=== PATIENT | female | born 1945 | race Caucasian/White ===

== ENCOUNTER 2024-07-05 12:26 | Emergency (ER) | payer MEDICARE, OTHER, SELFPAY ==
[2024-07-05 12:35] VITALS: BP 165/92
[2024-07-05 12:36] VITALS: BP 165/92
--- NOTE | 2024-07-05 12:37 | ED.GENMED ---
History of Present Illness
General
Chief Complaint: Seizure
Source: patient and ambulance crew
Exam Limitations: altered mental status
Time Seen by Provider: 07/05/24 12:34
History of Present Illness
History of Present Illness:
See MDM
Past History
Past History
ED Past Medical History: Cancer (Breast), NIDDM (Not currently on any medications) and Other (Arthritis)
ED Past Surgical History: Gynecological and Orthopedic
Social History
Tobacco: Non-smoker
Phy Exam
Physical Exam
Physical Exam:
See MDM
Course
Orders/Labs/Results
Orders:
Orders
07/05/24 12:33
Electrocardiogram (*1) Urgent
Reason for Study: Syncope
EKG- Treatment ONCE
07/05/24 12:36
CT Cervical Spine W/o Iv Contr Urgent
Comment:
Reason For Exam: unwitnessed fall, neck pain
CT Head W/o Iv Contrast Urgent
Comment:
Reason For Exam: headache, possible seizure
07/05/24 12:49
Complete Blood Count/With Diff Urgent
Comprehensive Metabolic Panel Urgent
Abnormal Lab Results
07/05/24
12:49
RBC 3.90 L 10^6/uL
(4.20-5.40)
Hct 36.7 L %
(37.0-47.0)
MCH 32.6 H pg
(27.0-31.0)
Absolute Lymphs (auto) 0.9 L 10^3/uL
(1.2-3.4)
Lymphocytes % 15.6 L %
(20.5-51.1)
BUN 18 H mg/dl
(7-17)
Glucose 109 H mg/dl
(70-99)
07/05/24 12:49
12/18/24 12:49
Vital Signs
Initial and Last Documented VS:
Initial Vital Signs
Pulse Resp Pulse Ox
79 19 79
07/05/24 12:34 07/05/24 12:34 07/05/24 12:34
Last Documented Vital Signs
Temp Pulse Resp BP Pulse Ox
98.6 F 72 16 165/92 100
07/05/24 12:36 07/05/24 12:45 07/05/24 13:00 07/05/24 12:36 07/05/24 13:08
MDM/Problems Addressed
Differential Diagnosis Includes:
HPI and MDM Narrative:
79-year-old female presenting by EMS for an unwitnessed fall at work. Not much is known. Patient is confused and altered. EMS states there was a concern for seizure but states no one witnessed full body twitching. Patient does have a tongue
bite. She was placed in cervical collar. Patient has repetitive questioning. There is no focal deficits but she does appear confused. Will obtain CT head and neck and will obtain basic blood work
Physical exam
General: Well appearing and non-toxic
HEENT: protecting airway. Tongue bite noted bilaterally to the anterior portion of the tongue. Small bruise to left chin
Neck: appears supple. Cervical collar in place
CV: No evidence of cyanosis. Regular rate and rhythm
Resp: No accessory muscle use
Abd: Non-distended
Extremities: No deformities
Neuro: alert
Psych: Normal affect
Skin: Intact
Problems Addressed including Acute and Chronic Conditions affecting care:
1. Possible new onset seizure versus syncope
Acuity: acute
Prognosis: stable
Details: Will obtain CT head and obtain basic blood
Updates
CT head and neck negative. Blood work without clinical significance. Patient back to baseline and offers no complaint. I had a long discussion with patient and family who was at bedside the entire time. I indicated that since I did not see the
episode, I cannot reliably blame this on a new onset seizure. I did discuss my concern for the tongue bite and the mild confusion and repetitive questioning when she arrived. Neuro was curbsided who suggested not to start antiepileptic drugs.
However, this could be related to the head trauma. It is possible that her tongue bite was related to the fall from syncope. She does have a bruise to her left chin and the tongue bite is more anterior rather than lateral. Because of this, we
discussed talking to her PCP about Holter monitor in about her episode. Everyone at bedside including the patient acknowledged my concern for her driving. She indicates that she will not drive until cleared by either neurologist or her primary
care physician.
Differential Diagnosis (but not limited to): Intracranial mass, intracranial hemorrhage, new onset seizures, hyponatremia, syncope
Testing considered: UDS
Drug therapy (if applicable): OTC meds, please see d/c instruction regarding Rx drugs
Amount and/or Complexity of Data Reviewed
Clinical info obtained from: Patient
External data reviewed: N/A
Labs I independently reviewed (but not limited to): Electrolytes within normal limits
Radiology: The CT scan was personally and independently reviewed. In addition, official CT report reviewed.
Pulse Ox: not hypoxic
EKG independently reviewed: Sinus rhythm, normal axis, no STEMI
Nipple Maker: Sinus rhythm
Critical Care: N/A
Risk of Complication:
Social Determinants of health: Good social support
Discussed with other providers: N/A
Escalation of Care includes Admit/Obs: After being observed in the Emergency Department, pt stable for discharge.
Occasional wrong word or 'sound a like' substitutions may have occurred due to the inherent limitations of voice recognition software. Read the chart carefully and recognize, using context, where substitutions have occurred.
*Critical Care Note
Total Time (30-74mins, 75-104mins- exclusive of procedures): Not Applicable
ED Attending Note
-
Portions of this chart may have been created with voice recognition software.� Occasional wrong word or��sound alike� substitutions may have occurred due to the inherent limitations of voice recognition software.
Discharge Plan
Departure
Patient Disposition: Home (Routine Discharge)
Date of Disposition: 07/05/24
Time of Disposition: 14:51
Patient with high blood pressure during this ER visit?: Yes
Discharge Problem:
Seizure-like activity
Instructions: Syncope (Fainting) (DC), BLOOD PRESSURE
Prescriptions:
No Action
meclizine 25 MG tablet
25 mg PO Q8HPRN PRN (Reason: dizziness) Qty: 15 0RF
Referrals:
Leticia Bennett DO [Family Provider] -
Arben Diego MD [Active] -
Activity Restrictions/Additional Instructions:
As we discussed, it is not certain whether or not you had a seizure. It is possible that you passed out and hit your chin causing the tongue bite. Because I cannot be certain, do not drive a car until cleared by your primary care doctor or a
neurologist. The neurologist is aware you were here today and agreed that we do not need to start seizure medicines. If this was a passing out episode rather than a seizure, please talk to your doctor about obtaining an outpatient heart monitor
called a Holter monitor.
Please return for any worsening symptoms.
You may return at any time if you have further concerns.
Please follow up with your doctor at the first available appointment, preferably this week.
Thank you for choosing [facility].
Interventions
Interventions:
*Risk Screen - Suicide Last Done: 07/05/24 13:08
*General Assessment Last Done: 07/05/24 13:08
*Neglect/Abuse Screening Last Done: 07/05/24 13:08
ED- Fall Risk Assessment Last Done: 07/05/24 13:08
*ED COVID-19 Vaccine History Last Done: 07/05/24 13:08
ED- Cardiac Assessment Last Done: 07/05/24 13:08
ED- Neurological Assessment Last Done: 07/05/24 13:08
ED- Pulmonary Assessment Last Done: 07/05/24 13:08
Discharge Date and Time
Print Language: MOHAWK
[2024-07-05 12:40] VITALS: BMI 31.7
[2024-07-05 12:55] LABS: Glucose - Point of Care 92 mg/dl (70-99)
[2024-07-05 12:59] LABS: % Basophils 0.4 % (0-2); % Eosinophils 1.8 % (0-6); % Immature Granulocytes 0.4 % (0-0.5); % Lymphocytes 15.6 % (20.5-51.1); % Monocytes 9.2 % (1.7-9.3); % Neutrophils 72.6 % (42.2-75.2); Absolute Eosinophils 0.1 10^3/uL (0-0.7); Absolute Lymphocytes 0.9 10^3/uL (1.2-3.4); Absolute Monocytes 0.5 10^3/uL (0.1-0.6); Hematocrit 36.7 % (37.0-47.0); Hemoglobin 12.7 g/dL (12.0-16.0); Mean Corp Hgb Conc. 34.6 g/dL (33.0-37.0); Mean Corpuscular Hgb 32.6 pg (27.0-31.0); Mean Corpuscular Volume 94.1 fL (81.0-99.0); Mean Platelet Volume 9.7 fL (7.4-10.4); Nucleated Red Blood Cells % 0 %; Platelet Count 190 10^3/uL (130-400); White Blood Cell Count 5.6 10^3/uL (4.8-10.8)
--- NOTE | 2024-07-05 13:11 | EDRN ---
Pts pulse ox was not 79% at 1234, mis documented.
[2024-07-05 13:14] LABS: AST (SGOT) 24 U/L (14-36); Albumin 4.2 g/dl (3.5-5.0); Blood Urea Nitrogen 18 mg/dl (7-17); Carbon Dioxide 27 mmol/L (22-30); Chloride 101 mmol/L (98-107); Estimated Creatinine Clearance 68 ml/min; Glucose 109 mg/dl (70-99); Sodium 135 mmol/L (135-145); Total Bilirubin 0.6 mg/dl (0.2-1.3); eGFR > 60.00
[2024-07-05 13:23] LABS: ALT (SGPT) 20 U/L (0-35); Alkaline Phosphatase 79 U/L (38-126); Calcium 8.9 mg/dl (8.4-10.2); Potassium 4.7 mmol/L (3.5-5.1); Total Protein 6.5 g/dl (6.3-8.2)
== END 2024-07-05 15:51 | disposition home or self-care (01) ==
LOC: EMR 12:26
PROVIDERS: EMERGENCY PHYSICIAN Student in an Organized Health Care Education/Training Program; FAMILY PHYSICIAN Family Medicine
DX: R56.9 Unspecified convulsions (principal); R03.0 Elevated blood-pressure reading, without diagnosis of hypertension
CPT/HCPCS: 99285; 70450; 72125; 80053; 82962; 85025; 93005

== ENCOUNTER → 2024-09-06 15:36 | Outpatient (REF) | payer MEDICARE, OTHER, SELFPAY | LOC: RCS 15:36 | PROVIDERS: ATTENDING PHYSICIAN Internal Medicine Cardiovascular Disease; FAMILY PHYSICIAN Family Medicine | DX: I48.0 Paroxysmal atrial fibrillation (principal); R55 Syncope and collapse | CPT/HCPCS: 93306 ==